=== PATIENT | female | born 1960 | race Caucasian/White ===

== ENCOUNTER 2024-09-15 19:24 | Emergency (ER) | payer MEDICARE ==
[2024-09-15 20:14] LABS: BASOPHILS PERCENT AUTO 0.5 % (0.0-1.0); EOSINOPHILS PERCENT AUTO 4.5 % (1.0-3.0); HEMATOCRIT 35.5 % (37.0-47.0); LYMPHOCYTES PERCENT AUTO 9.8 % (20.5-50.1); MEAN CORPUSCULAR HEMOGLOBIN 27.2 pg (27.0-34.0); MEAN CORPUSCULAR VOLUME 87.7 fL (80-100); NEUTROPHILS PERCENT AUTO 73.2 % (42.2-75.2); PLATELET COUNT,PLT 368 10^3/uL (150-450); RED BLOOD CELL COUNT 4.05 10^6/uL (4.2-5.4); WHITE BLOOD CELL COUNT,WBC 4.2 10^3/uL (5.0-10.0)
[2024-09-15 20:27] LABS: ALBUMIN 3.5 g/dL (3.4-5.0); ANION GAP 10.8 mEq/L (7-13); BILIRUBIN TOTAL 0.2 mg/dL (0.2-1.0); BUN/CREATININE RATIO 17.2 (No establ ref range); C-REACTIVE PROTEIN 0.5 ng/dL (<=0.50); CALCIUM 9.7 mg/dL (8.5-10.1); CREATININE 0.93 mg/dL (0.55-1.02); EST CRCL DRUG DOSING (CG) 47.7 mL/min; POTASSIUM,K 4.8 mmol/L (3.5-5.1); PROTEIN TOTAL,TP 7.1 g/dL (6.4-8.2)
[2024-09-15 21:08] LABS: SEDIMENTATION RATE MANUAL 13 mm/hr (0-20)
[2024-09-15] MEDS: Take Home: Acetaminophen/HYDROcodone 325-5 MG, 5 Tab Pack PO ONE (21:16)
== END 2024-09-15 21:18 | disposition home or self-care (01) ==
LOC: DL.ED 19:24
DX: M25.561 Pain in right knee (principal)
CPT/HCPCS: 36415; 73562; 80053; 85025; 85379; 85651; 86140; 99283; A9270